=== PATIENT | female | born 1935 | race Caucasian/White ===

== ENCOUNTER 2023-07-06 11:28 | Emergency (ER) | payer MEDICARE ==
[2023-07-06] MEDS ORDERED: Metoprolol Tartrate 5 MG (5 mL) VIAL ONE (12:15)
[2023-07-06] MEDS ORDERED: Magnesium 2 GM/50 ML BAG (IN WATER) ONE (12:16)
[2023-07-06 12:18] LABS: #Basophils 0.1 thou/uL (0.0-0.2); #Eosinphils 0.1 thou/uL (0.0-0.7); #Monocytes 0.5 thou/uL (0.11-0.59); #Neutrophils 3.7 thou/uL (1.40-6.50); %Basophils 0.9 % (0.0-1.0); %Eosinophils 2.1 % (0.0-10.0); %Lymphocytes 32.9 % (21.0-51.0); %Monocytes 7.1 % (0.0-10.0); %Neutrophils 56.7 % (42.0-75.0); Hematocrit 35.5 % (36.0-47.0); Hemoglobin 11.4 g/dL (12.0-16.0); Mean Corpuscular HGB CONC 32.1 g/dL (32.0-36.0); Mean Corpuscular Hemoglobin 27.8 pg (27.0-31.0); Mean Corpuscular Volume 86.6 fl (78.0-98.0); Mean Platelet Volume 8.7 fL (7.4-10.4); Platelet Count 338 10x3/uL (130-400); RBC Distribution Width 13.5 % (11.5-14.5); White Blood Cell (WBC) Count 6.6 10x3/uL (4.8-10.8)
[2023-07-06 12:45] LABS: ALT (SGPT) 11 U/L (8-55); AST (SGOT) 24 U/L (5-34); Albumin 4.3 g/dL (3.4-4.8); Alkaline Phosphatase 62 U/L (40-110); Anion Gap 13 mmol/L (10-20); BUN (Urea Nitrogen) 17 mg/dL (9.8-20.1); Bilirubin, Total 0.5 mg/dL (0.2-1.2); Calc. Creatinine Clearance 0 mL/min (70-130); Carbon Dioxide 25 mmol/L (23-31); Chloride 97 mmol/L (98-107); Estimated GFR 75; Globulin 3.2 g/dL (2.4-3.5); Glucose 96 mg/dL (83-110); Lipase 34 U/L (8-78); Potassium 4.6 mmol/L (3.5-5.1); Protein, Total 7.5 g/dL (5.8-8.1); Sodium 130 mmol/L (136-145)
[2023-07-06 12:48] LABS: Troponin I Less than 0.010 ng/mL (< 0.028)
== END 2023-07-06 14:15 | disposition home or self-care (01) ==
LOC: ERS 11:28
DX: I48.91 Unspecified atrial fibrillation (principal); I10 Essential (primary) hypertension; E78.00 Pure hypercholesterolemia, unspecified; E03.9 Hypothyroidism, unspecified; Z79.899 Other long term (current) drug therapy; Z79.01 Long term (current) use of anticoagulants
CPT/HCPCS: 71045; 80053; 83690; 83880; 84484; 85025; 93005; 96365; 96375; J3475

== ENCOUNTER 2024-05-05 19:54 | Observation (INO) | payer MEDICARE ==
[2024-05-05 20:27] VITALS: BMI 22.5
[2024-05-05] MEDS ORDERED: Famotidine 20 MG TAB PO PRN (20:52)
[2024-05-05] MEDS ORDERED: Calcium Carbonate 500 MG ChewTAB PO PRN (20:53)
[2024-05-05] MEDS ORDERED: Ondansetron ODT 4 MG TAB PO PRN (20:53)
[2024-05-05] MEDS ORDERED: Acetaminophen 650 MG Suppository PR PRN (20:53)
[2024-05-05] MEDS ORDERED: Ondansetron PF 4 MG/2 ML Vial IVP PRN (20:53)
[2024-05-05] MEDS: Atorvastatin Calcium 10 MG TAB PO SCH (21:20)
[2024-05-05] MEDS: Sotalol HCl 80 MG TAB PO SCH (21:21)
[2024-05-05] MEDS: Famotidine/PF 20 mg/2ml Vial SLOW IVP SCH (21:21)
[2024-05-05] MEDS: Aspirin 81 mg Enteric Coated Tablet PO SCH (21:21)
[2024-05-05] MEDS: Acetaminophen 325 MG TAB PO SCH (21:22)
[2024-05-05] MEDS: Lisinopril 10 MG TAB PO SCH (21:22)
[2024-05-05 21:27] LABS: #Basophils Less than 0.03 10x3/uL (0.0-0.2); #Eosinophils Less than 0.03 10x3/uL (0.0-0.7); %Basophils 0.4 % (0.0-1.0); %Eosinophils 0.2 % (0.0-10.0); %Lymphocytes 24.8 % (21.0-51.0); %Monocytes 11.8 % (0.0-10.0); %Neutrophils 62.6 % (42.0-75.0); Hematocrit 28.3 % (36.0-47.0); Hemoglobin 8.8 g/dL (12.0-16.0); Mean Corpuscular HGB CONC 31.1 g/dL (32.0-36.0); Mean Corpuscular Hemoglobin 25.3 pg (27.0-31.0); Mean Corpuscular Volume 81.3 fL (78.0-98.0); Mean Platelet Volume 9.3 fL (7.4-10.4); Platelet Count 181 10x3/uL (130-400); RBC Distribution Width 14.5 % (11.5-14.5); Red Blood Cell (RBC) Count 3.48 mill/uL (4.20-5.40)
[2024-05-05 21:41] LABS: ALT (SGPT) 10 U/L (8-55); AST (SGOT) 24 U/L (5-34); Alkaline Phosphatase 72 U/L (40-110); Anion Gap 15 mmol/L (10-20); BUN (Urea Nitrogen) 11 mg/dL (9.8-20.1); Bilirubin, Total 0.3 mg/dL (0.2-1.2); Calc. Creatinine Clearance 56 mL/min (70-130); Calcium 7.7 mg/dL (7.8-10.44); Carbon Dioxide 17 mmol/L (23-31); Chloride 99 mmol/L (98-107); Estimated GFR 87; Globulin 3.3 g/dL (2.4-3.5); Glucose 99 mg/dL (83-110); Potassium 3.6 mmol/L (3.5-5.1); Protein, Total 6.3 g/dL (5.8-8.1); Sodium 127 mmol/L (136-145)
[2024-05-05] MEDS: Acetaminophen 325 MG TAB ONE (22:16)
[2024-05-05] MEDS: Rivaroxaban 10 MG TAB PO SCH (22:29)
[2024-05-06] MEDS: Levothyroxine Sodium 25 MCG TAB PO SCH (05:39)
[2024-05-06 08:23] LABS: #Basophils 0.04 10x3/uL (0.0-0.2); %Basophils 0.9 % (0.0-1.0); %Eosinophils 0.9 % (0.0-10.0); %Lymphocytes 23.5 % (21.0-51.0); %Monocytes 16.9 % (0.0-10.0); %Neutrophils 57.6 % (42.0-75.0); Hematocrit 29.5 % (36.0-47.0); Hemoglobin 9.2 g/dL (12.0-16.0); Mean Corpuscular HGB CONC 31.2 g/dL (32.0-36.0); Mean Corpuscular Hemoglobin 25.1 pg (27.0-31.0); Mean Corpuscular Volume 80.4 fL (78.0-98.0); Mean Platelet Volume 8.9 fL (7.4-10.4); Platelet Count 222 10x3/uL (130-400); RBC Distribution Width 14.5 % (11.5-14.5); Red Blood Cell (RBC) Count 3.67 mill/uL (4.20-5.40)
[2024-05-06] MEDS: Pantoprazole DR 40 MG TAB PO SCH (08:30)
[2024-05-06] MEDS: Potassium Chloride 20 MEQ TAB PO SCH (08:30)
[2024-05-06] MEDS: dilTIAZem CD 180 MG CAP PO SCH (08:31)
[2024-05-06] MEDS: Cholecalciferol 1,000 UNITS (25 MCG) TAB PO SCH (08:31)
[2024-05-06 09:24] LABS: Anion Gap 12 mmol/L (10-20); BUN (Urea Nitrogen) 8 mg/dL (9.8-20.1); Calc. Creatinine Clearance 53 mL/min (70-130); Calcium 8.1 mg/dL (7.8-10.44); Carbon Dioxide 22 mmol/L (23-31); Chloride 98 mmol/L (98-107); Estimated GFR 85; Glucose 97 mg/dL (83-110); Potassium 3.2 mmol/L (3.5-5.1); Sodium 129 mmol/L (136-145)
[2024-05-06 13:24] VITALS: BP 111/59; TEMP 97.7
[2024-05-06 14:48] VITALS: BMI 22.5
[2024-05-06] MEDS ORDERED: Rivaroxaban 10 MG TAB PO SCH (17:00)
== END 2024-05-06 16:57 | disposition home or self-care (01) ==
LOC: T4-B 19:54 → INTOOBSV 19:54
PROVIDERS: ADMIT Family Medicine; ATTEND Internal Medicine
DX: E87.1 Hypo-osmolality and hyponatremia (principal); N39.0 Urinary tract infection, site not specified; E03.9 Hypothyroidism, unspecified; E78.5 Hyperlipidemia, unspecified; I10 Essential (primary) hypertension; I48.91 Unspecified atrial fibrillation; I48.4 Atypical atrial flutter; K21.9 Gastro-esophageal reflux disease without esophagitis; Z90.710 Acquired absence of both cervix and uterus; Z98.49 Cataract extraction status, unspecified eye; Z98.890 Other specified postprocedural states; Z91.041 Radiographic dye allergy status; Z88.2 Allergy status to sulfonamides; Z88.8 Allergy status to other drugs, medicaments and biological substances; Z79.890 Hormone replacement therapy; Z79.01 Long term (current) use of anticoagulants; Z79.82 Long term (current) use of aspirin; Z79.899 Other long term (current) drug therapy
CPT/HCPCS: 80048; 80053; 85025 ×2; 96374; G0378 ×2; J3490; 36415

== ENCOUNTER 2024-05-20 13:32 | Inpatient (IN) | payer MEDICARE ==
[2024-05-20 14:23] LABS: #Basophils 0.04 10x3/uL (0.0-0.2); %Basophils 0.4 % (0.0-1.0); %Eosinophils 0.7 % (0.0-10.0); %Lymphocytes 10.9 % (21.0-51.0); %Neutrophils 81.7 % (42.0-75.0); Hematocrit 28.3 % (36.0-47.0); Hemoglobin 8.7 g/dL (12.0-16.0); Mean Corpuscular HGB CONC 30.7 g/dL (32.0-36.0); Mean Corpuscular Hemoglobin 25.6 pg (27.0-31.0); Mean Corpuscular Volume 83.2 fL (78.0-98.0); Mean Platelet Volume 8.1 fL (7.4-10.4); Platelet Count 380 10x3/uL (130-400)
[2024-05-20 14:42] LABS: ALT (SGPT) 9 U/L (8-55); AST (SGOT) 18 U/L (5-34); Albumin 3.6 g/dL (3.4-4.8); Alkaline Phosphatase 80 U/L (40-110); Anion Gap 14 mmol/L (10-20); BUN (Urea Nitrogen) 18 mg/dL (9.8-20.1); Bilirubin, Total 0.4 mg/dL (0.2-1.2); Calc. Creatinine Clearance 0 mL/min (70-130); Calcium 8.8 mg/dL (7.8-10.44); Carbon Dioxide 24 mmol/L (23-31); Chloride 100 mmol/L (98-107); Estimated GFR 80; Globulin 3.3 g/dL (2.4-3.5); Glucose 127 mg/dL (83-110); Magnesium 2.2 mg/dL (1.6-2.6); Potassium 3.8 mmol/L (3.5-5.1); Protein, Total 6.9 g/dL (5.8-8.1); Sodium 134 mmol/L (136-145)
[2024-05-20 15:01] LABS: Troponin I Less than 0.010 ng/mL (< 0.028)
[2024-05-20 15:52] LABS: Bilirubin Negative (Negative); Blood, Urine 2+ (Negative); CAUTI Indications for Culture Alt mental st,lethar; Clarity Extra Turbid (Clear); Glucose, Urine (Dipstick) Normal (Negative); Ketone, Urine Negative (Negative); Leukocyte 500 Leu/uL (Negative); Nitrite Negative (Negative); Protein, Urine (Dipstick) 70 mg/dL (Neg-Trace); Specific Gravity, Urine 1.011 (1.002-1.036); Squamous Epithelial None Seen HPF (0-3); Urobilinogen Normal mg/dL (Less than 2); WBC/HPF Greater than 50 HPF (0-3)
[2024-05-20 15:53] LABS: Bacteria/HPF Rare-Few HPF (None Seen)
[2024-05-20 15:54] LABS: Urine Culture Reflex Yes Yes
[2024-05-20] MEDS ORDERED: cefTRIAXone (ROCEPHIN) 1 GM VIAL ONE (16:24)
[2024-05-20] MEDS ORDERED: Sodium Chloride 0.9% 100 ML ONE (16:24)
[2024-05-20] MEDS ORDERED: Famotidine 20 MG TAB PO PRN (17:47)
[2024-05-20] MEDS ORDERED: Senokot S 8.6-50 MG TAB PO PRN (17:49)
[2024-05-20] MEDS ORDERED: Calcium Carbonate 500 MG ChewTAB PO PRN (17:49)
[2024-05-20] MEDS ORDERED: Acetaminophen 650 MG Suppository PR PRN (17:49)
[2024-05-20] MEDS ORDERED: Atorvastatin Calcium 10 MG TAB ONE (22:01)
[2024-05-20] MEDS ORDERED: Aspirin 81 mg Enteric Coated Tablet ONE (22:01)
[2024-05-20] MEDS: Atorvastatin Calcium 10 MG TAB PO SCH (22:06)
[2024-05-20] MEDS: Aspirin 81 mg Enteric Coated Tablet PO SCH (22:06)
[2024-05-20 23:25] VITALS: BMI 21.9
[2024-05-21 04:27] LABS: #Basophils 0.03 10x3/uL (0.0-0.2); #Eosinophils Less than 0.03 10x3/uL (0.0-0.7); %Basophils 0.4 % (0.0-1.0); %Eosinophils 0.3 % (0.0-10.0); %Lymphocytes 17.2 % (21.0-51.0); %Monocytes 8.5 % (0.0-10.0); %Neutrophils 73.3 % (42.0-75.0); Hematocrit 27.3 % (36.0-47.0); Hemoglobin 8.5 g/dL (12.0-16.0); Mean Corpuscular HGB CONC 31.1 g/dL (32.0-36.0); Mean Corpuscular Hemoglobin 25.3 pg (27.0-31.0); Mean Corpuscular Volume 81.3 fL (78.0-98.0); Mean Platelet Volume 8.2 fL (7.4-10.4); Platelet Count 328 10x3/uL (130-400); RBC Distribution Width 15.3 % (11.5-14.5); Red Blood Cell (RBC) Count 3.36 mill/uL (4.20-5.40)
[2024-05-21 04:56] LABS: Anion Gap 13 mmol/L (10-20); BUN (Urea Nitrogen) 13 mg/dL (9.8-20.1); Calc. Creatinine Clearance 55 mL/min (70-130); Calcium 8.5 mg/dL (7.8-10.44); Carbon Dioxide 23 mmol/L (23-31); Chloride 101 mmol/L (98-107); Estimated GFR 87; Glucose 100 mg/dL (83-110); Potassium 3.6 mmol/L (3.5-5.1); Sodium 133 mmol/L (136-145)
[2024-05-21] MEDS: Levothyroxine Sodium 25 MCG TAB PO SCH (05:27)
[2024-05-21 09:06] LABS: Iron 20 ug/dL (50-170); Iron Binding Capacity, Total 315 mcg/dL (265-497)
[2024-05-21] MEDS: Acetaminophen 325 MG TAB PO PRN (16:51)
[2024-05-21] MEDS: cefTRIAXone\\ROCEPHIN 1 GM in Sodium Chloride 0.9% 100 ML IVPB SCH (16:53)
[2024-05-21] MEDS: Rivaroxaban 10 MG TAB PO SCH (16:54)
[2024-05-21] MEDS ORDERED: Rivaroxaban 15 MG TAB PO SCH (17:00)
[2024-05-21] MEDS: Sotalol HCl 80 MG TAB PO SCH (22:20)
[2024-05-21] MEDS: Lisinopril 10 MG TAB PO SCH (22:21)
[2024-05-22 08:34] LABS: #Basophils 0.03 10x3/uL (0.0-0.2); #Eosinophils Less than 0.03 10x3/uL (0.0-0.7); %Basophils 0.7 % (0.0-1.0); %Eosinophils 0.5 % (0.0-10.0); %Lymphocytes 21.1 % (21.0-51.0); %Monocytes 10.8 % (0.0-10.0); %Neutrophils 66.7 % (42.0-75.0); Hematocrit 29.8 % (36.0-47.0); Hemoglobin 9.6 g/dL (12.0-16.0); Mean Corpuscular HGB CONC 32.2 g/dL (32.0-36.0); Mean Corpuscular Hemoglobin 26.1 pg (27.0-31.0); Mean Platelet Volume 8.3 fL (7.4-10.4); Platelet Count 282 10x3/uL (130-400); Red Blood Cell (RBC) Count 3.68 mill/uL (4.20-5.40)
[2024-05-22] MEDS: Sotalol HCl 80 MG TAB PO SCH (09:05)
[2024-05-22 13:17] VITALS: BMI 22.6
[2024-05-22] MEDS: dilTIAZem CD 180 MG CAP PO SCH (17:57)
[2024-05-22] MEDS: Lisinopril 10 MG TAB PO SCH (21:51)
[2024-05-23 09:09] VITALS: BP 136/62; TEMP 97.5
[2024-05-23] MEDS: dilTIAZem CD 180 MG CAP PO SCH (09:30)
[2024-05-23] MEDS: Cholecalciferol 1,000 UNITS (25 MCG) TAB PO SCH (09:30)
[2024-05-23] MEDS: Pantoprazole DR 40 MG TAB PO SCH (09:31)
[2024-05-23] MEDS: Potassium Chloride 20 MEQ TAB PO SCH (09:31)
[2024-05-23] MEDS: Ondansetron ODT 4 MG TAB PO SCH (10:55)
== END 2024-05-23 11:26 | disposition home or self-care (01) | DRG 812 ==
LOC: ERS 13:32 → ERHOLD 16:29 → 2SE 23:18 → OBSVTOIN 05-22 09:48 → 2NO 05-22 13:54
PROVIDERS: ADMIT Internal Medicine; ATTEND Family Medicine
PROC: 30233N1 Transfusion of Nonautologous Red Blood Cells into Peripheral Vein, Percutaneous Approach (ICD-10-PCS; principal; 2024-05-21)
DX: D64.9 Anemia, unspecified (principal); N39.0 Urinary tract infection, site not specified; E87.1 Hypo-osmolality and hyponatremia; Z16.24 Resistance to multiple antibiotics; E78.5 Hyperlipidemia, unspecified; E03.9 Hypothyroidism, unspecified; I48.91 Unspecified atrial fibrillation; K21.9 Gastro-esophageal reflux disease without esophagitis; Z88.2 Allergy status to sulfonamides; Z88.8 Allergy status to other drugs, medicaments and biological substances; Z91.041 Radiographic dye allergy status; Z90.710 Acquired absence of both cervix and uterus; Z79.01 Long term (current) use of anticoagulants; B96.20 Unspecified Escherichia coli [E. coli] as the cause of diseases classified elsewhere
CPT/HCPCS: 36415; 36416; 36430; 70450; 80048; 80053; 81001; 82728; 83540; 83550; 83605; 83735; 84484; 85025; 86850; 86900; 86901; 87077; 87086; 87186; 93005; 96374; 96376; G0378; J0696; P9016; Q0162

== ENCOUNTER 2025-04-26 11:46 | Outpatient (CLI) | payer MEDICARE ==
[2025-04-26 12:32] LABS: #Basophils 0.07 10x3/uL (0.0-0.2); #Eosinophils 0.15 10x3/uL (0.0-0.7); #Monocytes 0.51 10x3/uL (0.11-0.59); #Neutrophils 3.55 10x3/uL (1.40-6.50); %Basophils 1.3 % (0.0-1.0); %Eosinophils 2.7 % (0.0-10.0); %Lymphocytes 23.1 % (21.0-51.0); %Monocytes 9.1 % (0.0-10.0); %Neutrophils 63.6 % (42.0-75.0); Hematocrit 33.8 % (36.0-47.0); Hemoglobin 10.4 g/dL (12.0-16.0); Mean Corpuscular Hemoglobin 25.8 pg (27.0-31.0); Mean Corpuscular Volume 83.9 fL (78.0-98.0); Platelet Count 293 10x3/uL (130-400); Red Blood Cell (RBC) Count 4.03 mill/uL (4.20-5.40); White Blood Cell (WBC) Count 5.58 10x3/uL (4.8-10.8)
[2025-04-26 12:48] LABS: Anion Gap 14 mmol/L (10-20); BUN (Urea Nitrogen) 20 mg/dL (9.8-20.1); Calc. Creatinine Clearance 0 mL/min (70-130); Calcium 9.4 mg/dL (7.8-10.44); Carbon Dioxide 26 mmol/L (23-31); Chloride 99 mmol/L (98-107); Glucose 94 mg/dL (83-110); Potassium 4.0 mmol/L (3.5-5.1); Sodium 135 mmol/L (136-145)
== END 2025-04-26 11:47 | disposition home or self-care (01) ==
LOC: LABBT 11:46
PROVIDERS: ATTEND Internal Medicine Cardiovascular Disease
DX: Z01.812 Encounter for preprocedural laboratory examination (principal); I48.92 Unspecified atrial flutter; R00.0 Tachycardia, unspecified